=== PATIENT | male | born 1995 | race Caucasian/White ===

== ENCOUNTER → 2016-10-25 | Outpatient (CLI) | payer OTHER ==
[~2016-10-25] MED LIST: CRESTOR5 MG PO; NO MEDICATIONS; NORVASC PO; PHENERGAN PO; VASOTEC PO; ZESTRIL10 M1 PO
--- NOTE | ~2016-10-25 | CT2 ---
[facility] A Service of [facility] & [facility] RADIOLOGY TEXT RESULTS PATIENT: ZOHAIB ALCALA LOCATION: [facility] : [birth year] UNIT #: [id number] AGE: [address]: CAESAR RIVAS MD SEX: M ORDER DR: [id number] [place] [id number] MR#: [id number] Acc #: [id number] NAME: ZOHAIB ALCALA : 1995 SEX: M STUDY DATE/TIME: 10/25/2016 13:58 UNIT: [facility] ROOM: STUDY DESCRIPTION: CT Abd and Pelv W Cont Attending Physician: Armani Rivas M.D. Referring Physician: Armani Rivas M.D. Ordering Physician: Armani Rivas M.D. Primary Care Physician: Jeanie Kim M.D. MEDICAL IMAGING REPORT This report is preliminary unless electronic signature is present. EXAM CT of abdomen and pelvis. DATE OF EXAM 10/25/2016 INDICATIONS Abdominal pain in the left lower quadrant with nausea that started this morning. Pain currently rates 7 out of 10. TECHNIQUE Axial images were obtained through the abdomen and pelvis following oral and IV contrast administration. Multiplanar reformats were obtained. NOTE: This CT exam was performed with one or more of the following radiation dose reduction techniques: automatic exposure control, adjustment of mA and/or kV according to patient size, and iterative reconstruction. COMPARISON No comparison CT. FINDINGS ABDOMEN: Lung bases are clear. Gallbladder is contracted. Fatty infiltration of the liver is present. Solid organs are otherwise normal. No free fluid or adenopathy is seen. The GI tract is normal. PELVIS: The appendix is normal. There is some mild fat stranding adjacent to the proximal sigmoid colon in the left lower quadrant. No adjacent diverticulum is seen, but this could still potentially reflect mild diverticulitis. Epiploic appendagitis is also a differential consideration. The remainder of the GI tract in the pelvis is normal. Urinary bladder is normal. There is no free fluid. There are bilateral L5 pars defects without spondylolisthesis at L5-S1. There is an old right STS. [facility] A Service of [facility] & [facility] RADIOLOGY TEXT RESULTS PATIENT: ZOHAIB ALCALA LOCATION: [facility] : [birth year] UNIT #: [id number] AGE: [address]: CAESAR RIVAS MD SEX: M ORDER DR: L3 transverse process fracture. IMPRESSION 1. Mild area of fat stranding adjacent to the proximal sigmoid colon in the left lower quadrant. This may reflect epiploic appendagitis or potentially diverticulitis although no adjacent diverticulum is seen. The remainder of the GI tract including the appendix is normal. 2. Fatty infiltration of the liver. 3. Bilateral L5 pars defects without spondylolisthesis at L5-S1. 4. Old right L3 transverse process fracture. Dictated by... Adán Lucas Jr., M.D. THIS IS AN ELECTRONICALLY VERIFIED REPORT Adán Lucas Jr., M.D. at 10/29/2016 2:23 PM YARA/jhon TD: 10/25/2016 20:06 JOB #: [id number] MEDICAL IMAGING REPORT
== END | disposition home or self-care (01) ==
LOC: SCT 13:04
DX: R10.32 Left lower quadrant pain (principal); K76.0 Fatty (change of) liver, not elsewhere classified
CPT/HCPCS: 74177; Q9967